=== PATIENT | male | born 1990 | race Asian ===

== ENCOUNTER 2025-02-24 16:00 | Emergency (ER) | payer MEDICAID, OTHER ==
[~2025-02-24] VITALS: Ht 177.8 cm; Wt 97.5 kg
[~2025-02-24 16:00] MED LIST: CYCL5TAB PO
[2025-02-24] MEDS ORDERED: TDAP [DIPH/PERTUSSIS/TET] 0.5 ML VIAL IM ONE (17:33)
[2025-02-24] MEDS: BACI/NEOM/POLY B OINT PKT 1 UDPKT PACKET TP ONE (17:41)
[2025-02-24] MEDS: TDAP [DIPH/PERTUSSIS/TET] 0.5 ML VIAL IM ONE (17:41)
[2025-02-24 18:09] VITALS: BP 130/80; TEMP 98.1; O2SAT 99
== END 2025-02-24 18:10 | disposition home or self-care (01) ==
LOC: ER 16:11
DX: S61.012A Laceration without foreign body of left thumb without damage to nail, initial encounter (principal); W45.8XXA Other foreign body or object entering through skin, initial encounter; Y93.89 Activity, other specified; Y92.89 Other specified places as the place of occurrence of the external cause; Y99.8 Other external cause status
CPT/HCPCS: 12001; 90471; 90715; 99283; A6403